=== PATIENT | male | born 1970 | race Caucasian/White ===

== ENCOUNTER → 2018-03-15 | Outpatient (CLI) | payer BC, OTHER ==
[~2018-03-15] MED LIST: AMOX500C2 PO; ENAL10TA PO; LISI10TA PO
--- NOTE | 2018-03-15 17:01 | Diagnostic Imaging Report ---
INDICATION: Left groin pain FINDINGS: Ultrasound of the left groin does not show any evidence of inguinal or femoral hernia. IMPRESSION: No evidence of hernia in the left groin. Dictated by: Dictated on workstation # [id number]
== END ==
LOC: RAD 15:12
PROVIDERS: ATTEND Nurse Practitioner Family
DX: R10.32 Left lower quadrant pain (principal)
CPT/HCPCS: 76881

== ENCOUNTER 2021-03-08 12:37 | Outpatient (CLI) | payer BC ==
[~2021-03-08] VITALS: Ht 177.8 cm; Wt 127.0 kg
[2021-03-08 12:42] VITALS: BP 136/81
[2021-03-08] MEDS ORDERED: EPINEPHrine INJECTION 1 MG/ML AMP IM PRN (12:45)
[2021-03-08] MEDS ORDERED: CASIRIVIMAB/IMDEVIMAB 1,200 MG in NS (IVPB) 250 ML IV ONE (12:45)
[2021-03-08] MEDS ORDERED: ONDANSETRON 4 MG/2 ML (SDV) Z0FRAN IV PRN (12:45)
[2021-03-08] MEDS ORDERED: ACETAMINOPHEN 500 MG TAB (TYLENOL) PO PRN (12:45)
[2021-03-08] MEDS ORDERED: diphenhydrAMINE 50 MG/ML INJ (BENADRYL) IV PRN (12:45)
[2021-03-08 14:10] VITALS: BP 128/86
== END 2021-03-08 14:36 | disposition home or self-care (01) ==
LOC: INFUSION 12:37
PROVIDERS: ATTEND Family Medicine
DX: Z23 Encounter for immunization (principal); U07.1 COVID-19

== ENCOUNTER → 2022-01-05 | Outpatient (CLI) | payer BC ==
--- NOTE | 2022-01-05 13:26 | Diagnostic Imaging Report ---
Indication: Fall with left knee pain. Time of Exam: 10:45 AM 3 views of the left knee were obtained. Alignment is normal. Joint spaces are well maintained. Articular surfaces are smooth. No fracture, dislocation or effusion is identified. Impression: No acute abnormality is detected. Dictated by: Dictated on workstation # [id number]
== END ==
LOC: RAD 10:23
PROVIDERS: ATTEND Family Medicine
DX: M25.562 Pain in left knee (principal); W19.XXXA Unspecified fall, initial encounter
CPT/HCPCS: 73562

== ENCOUNTER → 2022-01-14 | Outpatient (CLI) | payer BC ==
--- NOTE | 2022-01-14 15:09 | Diagnostic Imaging Report ---
PROCEDURE: MRI left joint lower extremity without contrast. TECHNIQUE: Multiplanar, multisequence [id number] MRI of the left lower extremity was accomplished. INDICATION: Left knee pain, injury several months ago. COMPARISON: Radiographs from 01/05/2022. FINDINGS: There is motion artifact on multiple sequences. No acute fracture is seen in the left knee. Alignment appears normal. There is a minimal left knee joint effusion. The articular cartilage in the patellofemoral compartment demonstrates no full-thickness defects. The articular cartilage in the medial compartment demonstrates thinning and surface irregularity with small full-thickness defect. The lateral compartment cartilage appears to be intact. The medial meniscus demonstrates a radial tearing at the junction of the posterior horn and body. The lateral meniscus appears intact. The anterior and posterior cruciate ligaments are intact. The medial collateral ligament is intact. The lateral collateral ligamentous complex is intact. The extensor mechanism is intact. The medial and lateral retinacula are intact. Soft tissues about the knee are otherwise unremarkable. IMPRESSION: 1. Small tear of the medial meniscus. 2. Cartilage loss in the medial compartment with a small full-thickness defect. 3. Minimal left knee joint effusion. Dictated by: Dictated on workstation # [id number]
== END ==
LOC: RAD 13:15
PROVIDERS: ATTEND Family Medicine
DX: S83.242A Other tear of medial meniscus, current injury, left knee, initial encounter (principal); X58.XXXA Exposure to other specified factors, initial encounter
CPT/HCPCS: 73721

== ENCOUNTER → 2023-04-24 | Outpatient (CLI) | payer OTHER ==
--- NOTE | 2023-04-24 17:03 | Diagnostic Imaging Report ---
PROCEDURE: US carotid duplex, bilateral. TECHNIQUE: Multiple real-time grayscale images were obtained over the carotid arteries in various projections, bilaterally. Additional spectral analysis and color Doppler duplex images were also obtained. INDICATION: Dizziness Parameters based on the consensus panel Villagomez-Scale and Doppler ultrasound criteria published April 2003, Radiology, Volume 229. DOPPLER (peak systolic velocity M/S Right Left CCA 1.30 1.33 ICA Proximal 0.97 1.24 ICA Mid 0.87 0.97 ICA Distal 1.01 0.83 RATIO 0.78 0.93 ECA 1.38 1.08 VERT 0.34 0.51 Mild plaque is seen within the bilateral common carotid arteries. Waveforms are normal. There is no antegrade flow within both vertebral arteries. IMPRESSION: No hemodynamically significant stenosis of the bilateral internal carotid arteries by velocity and ratio criteria. Dictated by: Dictated on workstation # [id number]
== END ==
LOC: RAD 08:20
PROVIDERS: ATTEND Family Medicine
DX: R42 Dizziness and giddiness (principal)
CPT/HCPCS: 93880